=== PATIENT | male | born 1970 | race Caucasian/White ===

== ENCOUNTER 2023-12-31 12:31 | Emergency (ER) | payer OTHER, SELFPAY ==
[2023-12-31 12:33] VITALS: BP 137/82; BMI 25.7
--- NOTE | 2023-12-31 13:06 | ED.GENMED ---
History of Present Illness
General
Chief Complaint: Abdominal Pain
Source: patient
Exam Limitations: none
Time Seen by Provider: 12/31/23 12:43
Nursing documentation reviewed up to this point in time: agreed with
Travel History
Have you had any contact with someone who has COVID-19?: No
Do you have any symptoms of coronavirus? Fever > 100 degrees, chills, cough, shortness of breath, sore throat, loss of taste or smell, muscle aches, or headache?: No
History of Present Illness
History of Present Illness:
53-year-old male with no significant past medical history presents with left flank pain that started at 730 this morning and is worsening, he has been vomiting several times, feels nauseous, took Pepto-Bismol with no relief. He denies fever or
chills.
Past History
Past History
ED Past Medical History: None
ED Past Surgical History: None
Social History
Tobacco: Non-smoker
Alcohol: Occasional
Living: with family
Employment: Employed
Review of Systems
Review of Systems
Allergies reviewed?: Yes
All Other Systems: ROS reviewed and negative except as documented in HPI and ROS
Constitutional: Denies fever or chills
Respiratory: Denies trouble breathing
Cardiac: Denies chest pain
ABD/GI: Reports nausea and vomiting; Denies abdominal pain or diarrhea
: Reports flank pain (Left); Denies dysuria, frequency, difficulty voiding, urgency or dark urine
Musculoskeletal: Reports no symptoms
Skin: Reports no symptoms
Neurological: Reports no symptoms
Phy Exam
Physical Exam
Physical Exam:
GENERAL: No acute distress. A&Ox3.
CONSTITUTIONAL: Afebrile.
RESPIRATORY: Regular respirations, nonlabored, lungs clear.
CARDIOVASCULAR: Regular rate and rhythm, no murmurs, no rubs.
GI: Soft, nontender, normal BS pacing the floor holding left flank,
MUSCULOSKELETAL: Moves with ease. Well perfused.
SKIN: Warm, dry, pink
PSYCH: Normal mood and affect. Well kept, interactive and appropriate
NEUROLOGIC: Awake, alert and oriented. No focal neurological deficits
Course
Orders/Labs/Results
Orders:
Orders
12/31/23 12:40
Electrocardiogram (*1) Urgent
Reason for Study: Abdominal Pain
EKG- Treatment ONCE
12/31/23 13:04
0.9% Sodium Chloride 1000 ml [Nss] 1,000 ml IV BOLUS
Ketorolac [Toradol] 15 mg IV NOW STA
12/31/23 13:05
CT Abd/pel Without Iv Or Oral Urgent
Comment:
Reason For Exam: Left flank pain, vomiting
12/31/23 13:17
Complete Blood Count/With Diff Urgent
Comprehensive Metabolic Panel Urgent
Urinalysis Reflex To Culture Urgent
Date Specimen was Collected: 12/31/23
Time Specimen was Collected: 13:10
Urine Microscopic Reflex Cult Urgent
12/31/23 16:04
Tamsulosin [Flomax] 0.4 mg PO NOW STA
Abnormal Lab Results
12/31/23
13:17
Absolute Neuts (auto) 8.9 H 10^3/uL
(1.4-6.5)
Absolute Lymphs (auto) 1.0 L 10^3/uL
(1.2-3.4)
Neutrophils % 84.6 H %
(42.2-75.2)
Lymphocytes % 9.9 L %
(20.5-51.1)
BUN 25 H mg/dl
(9-20)
Glucose 128 H mg/dl
(70-99)
Urine Ketones Trace A
(Negative)
Ur Occult Blood Reflex 4+ A
(Negative)
Leukocyte Esterase Rfl Trace A
(Negative)
Urine RBC >100 A /HPF
(0-2)
Urine Albumin (Reflex) 1+ A
(Neg - Trace)
12/31/23 13:17
12/31/23 13:17
Vital Signs
Initial and Last Documented VS:
Initial Vital Signs
Temp Pulse Resp BP Pulse Ox
98.2 F 63 16 137/82 100
12/31/23 12:33 12/31/23 12:33 12/31/23 12:33 12/31/23 12:33 12/31/23 12:33
Last Documented Vital Signs
Temp Pulse Resp BP Pulse Ox
98.2 F 74 16 122/72 96
12/31/23 16:15 12/31/23 16:00 12/31/23 16:00 12/31/23 16:00 12/31/23 16:00
MDM/Problems Addressed
Differential Diagnosis Includes:
Kidney stone, ureteral stone, UTI
MDM/Problems Addressed:
53-year-old male with no significant past medical history presents with left flank pain that started at 730 this morning and is worsening, he has been vomiting several times, feels nauseous, took Pepto-Bismol with no relief. He denies fever or
chills.
EKG NSR
2:00 PM
In to reevaluate patient. He states much relief after Toradol IV.
CBC normal
CMP with no clinically significant abnormality
UA: Greater than 100 RBCs plus for blood, no sign of infection
3:10 PM:
Ultrasound kidneys with bladder radiology report read: IMPRESSION:
1). There is a 3.5 mm obstructing calculus in the proximal ureter associated with mild left hydronephrosis
2). Diverticuli are present in the colon with no CT evidence of diverticulitis
Patient continues to feel well with minimal pain.
Plan: DC, pain medication, Flomax, strain urine, Urology f/u
Contacted urologist Dr. Nino who agrees with plan and should f/u in 'a week or so.'
pt comfortable with this plan
*EKG
EKG Intrepretation Date: 12/31/23
Interpretation: normal
Rate: normal
Rhythm: sinus
[place]: normal axis
Interval: normal interval
QRS Pattern: normal QRS
Ischemia: no ischemia
*Critical Care Note
Total Time (30-74mins, 75-104mins- exclusive of procedures): Not Applicable
ED Attending Note
-
Portions of this chart may have been created with voice recognition software.� Occasional wrong word or��sound alike� substitutions may have occurred due to the inherent limitations of voice recognition software.
Discharge Plan
Departure
Patient Disposition: Home (Routine Discharge)
Date of Disposition: 12/31/23
Time of Disposition: 15:59
Patient with high blood pressure during this ER visit?: No
Condition: Good
Discharge Problem:
Calculus of proximal left ureter
Instructions: Kidney Stone, Adult ED
Prescriptions:
New
hydrocodone-acetaminophen 5-300 mg tablet
1 tab PO Q6H PRN (Reason: Pain) Qty: 10 0RF
tamsulosin [Flomax] 0.4 mg capsule
0.4 mg PO DAILY Qty: 5 0RF
Referrals:
Jun Biggs MD [Family Provider] -
Gen Nino Jr., MD [Active] - Call in 1-3 days for appt
Activity Restrictions/Additional Instructions:
As we discussed, I sent a prescription to your pharmacy for Flomax and hydrocodone as needed for pain.
Use ibuprofen 600 mg for mild to moderate pain and use the hydrocodone if needed for worse pain.
Start the Flomax tomorrow as you were given a dose here today
Strain your urine and if you see a stone placed in the container we provided and take it with you to your urology appointment
Call the urology office tomorrow morning and make an appointment for sometime within the next week or so
Return here immediately for fever, chills, vomiting, pain not relieved with the medication provide or feeling sicker in any way
Interventions
Interventions:
*Risk Screen - Suicide Last Done: 12/31/23 12:33
*General Assessment Last Done: 12/31/23 13:24
*Neglect/Abuse Screening Last Done: 12/31/23 12:33
ED- Fall Risk Assessment Last Done: 12/31/23 13:29
*ED COVID-19 Vaccine History Last Done: 12/31/23 12:33
*Nursing Disposition Last Done: 12/31/23 16:15
SO-[id number]-Yzbfjnvbmm Assessment Last Done: 12/31/23 13:28
Discharge Date and Time
Discharge Date/Time: 12/31/23 16:15
Print Language: CYPRIOT
[2023-12-31] MEDS: NSS 1000 IV (13:16)
[2023-12-31] MEDS: TORADOL 15 MG IV (13:20)
[2023-12-31 13:24] VITALS: BP 129/84
[2023-12-31 13:24] LABS: Urine Albumin 1+ (Neg - Trace); Urine Bilirubin Negative (Negative); Urine Character Very Cloudy (Clear); Urine Color Yellow; Urine Glucose Negative (Negative); Urine Ketone Trace (Negative); Urine Leukocyte Trace (Negative); Urine Nitrite Negative (Negative); Urine Occult Blood 4+ (Negative); Urine Urobilinogen Negative (Neg - 1+)
[2023-12-31 13:31] LABS: % Basophils 0.4 % (0-2); % Eosinophils 0.9 % (0-6); % Immature Granulocytes 0.4 % (0-0.5); % Lymphocytes 9.9 % (20.5-51.1); % Monocytes 3.8 % (1.7-9.3); % Neutrophils 84.6 % (42.2-75.2); Absolute Eosinophils 0.1 10^3/uL (0-0.7); Absolute Monocytes 0.4 10^3/uL (0.1-0.6); Absolute Neutrophils 8.9 10^3/uL (1.4-6.5); Hematocrit 42.2 % (39.0-52.0); Hemoglobin 14.8 g/dL (13.0-18.0); Mean Corp Hgb Conc. 35.1 g/dL (33.0-37.0); Mean Corpuscular Hgb 29.7 pg (27.0-31.0); Mean Corpuscular Volume 84.7 fL (80.0-94.0); Mean Platelet Volume 10.3 fL (7.4-10.4); Nucleated Red Blood Cells % 0 % (-); Platelet Count 221 10^3/uL (130-400); Red Blood Cell Count 4.98 10^6/uL (4.70-6.10); White Blood Cell Count 10.5 10^3/uL (4.8-10.8)
[2023-12-31 13:36] LABS: ALT (SGPT) 19 U/L (0-50); AST (SGOT) 23 U/L (17-59); Albumin 4.4 g/dl (3.5-5.0); Alkaline Phosphatase 76 U/L (38-126); Blood Urea Nitrogen 25 mg/dl (9-20); Calcium 9.7 mg/dl (8.4-10.2); Carbon Dioxide 29 mmol/L (22-30); Chloride 106 mmol/L (98-107); Estimated Creatinine Clearance 82 ml/min; Glucose 128 mg/dl (70-99); Potassium 4.3 mmol/L (3.5-5.1); Sodium 139 mmol/L (135-145); Total Bilirubin 0.5 mg/dl (0.2-1.3); Total Protein 7.1 g/dl (6.3-8.2); eGFR > 60.00
[2023-12-31 14:08] LABS: Urine Mucus Few
[2023-12-31 14:09] LABS: Urine Red Blood Cell >100 /HPF (0-2); Urine Squamous Cell 0-2 /LPF (Few)
[2023-12-31 14:10] LABS: Urine White Cell 0-2 /HPF (0-5)
[2023-12-31 16:00] VITALS: BP 122/72
[2023-12-31] MEDS: FLOMAX 0.400000000000000022 MG PO (16:14)
== END 2023-12-31 16:15 | disposition home or self-care (01) ==
LOC: EMR 12:31
PROVIDERS: Registered Nurse; EMERGENCY PHYSICIAN Emergency Medicine; FAMILY PHYSICIAN Internal Medicine
DX: N20.1 Calculus of ureter (principal)
CPT/HCPCS: 99285; 96374; 96361; 74176; 80053; 81003; 81015; 85025; 93005